=== PATIENT | female | born 1970 | race African-American/Black ===

== ENCOUNTER 2017-06-15 09:53 | Emergency (ER) | payer SELFPAY ==
[~2017-06-15] VITALS: Ht 170.2 cm; Wt 61.2 kg
[2017-06-15 10:25] VITALS: BP 115/71
--- NOTE | 2017-06-15 10:35 | Emergency Room Report ---
History of Present Illness General Chief Complaint: Upper Respiratory Illness Source: Patient Present Illness HPI Patient present with complaints of shortness of breath Patient was just COPD and over the past several days has had a nonproductive cough She has some mild chest tightness with this but associated to the breathing Denies any vomiting or diarrhea denies any fevers or chills Patient has low back discomfort as well Does not recall how she hurt the back She reports moderate distress to her breathing Denies any recent travel or pleurisy Allergies: Coded Allergies: No Known Allergies (Unverified , 06/15/17) Patient History Past Medical History: see triage record Pertinent Family History: none Last Menstrual Period: 2008 Reviewed Nursing Documentation: PMH: Agreed, PSxH: Agreed Nursing Documentation-PMH Past Medical History: No History, Except For Hx Cardiac Problems: No - 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,cervical cancer Hx COPD: Yes Review of Systems All Other Systems: negative except mentioned in HPI Physical Exam Vital Signs Date Time Temp Pulse Resp B/P (MAP) Pulse Ox O2 Delivery O2 Flow Rate FiO2 06/15/17 10:00 97.9 84 18 115/75 93 Room Air Sp02 EP Interpretation: reviewed, normal General Appearance: moderate distress - appears short of breath Head: normocephalic, atraumatic Eyes: bilateral eye PERRL, bilateral eye EOMI ENT: hearing grossly normal, normal pharynx, TMs + canals normal, uvula midline Neck: full range of motion, supple, no meningismus, no bony tend Respiratory: crackles - Diffusely, patient is tachypneic and showing mild early signs of retractions Cardiovascular #1: normal peripheral pulses, regular rate, rhythm, no edema, no gallop, no JVD, no murmur Gastrointestinal: normal bowel sounds, non tender, soft, no mass, no organomegaly, non-distended, no guarding, no hernia, no pulsatile mass, no rebound Genitourinary: no CVA tenderness Musculoskeletal: normal inspection Neurologic: oriented x3, responsive, cut tobacco bulker III-XII nml as tested, motor strength/ tone normal, sensory intact Psychiatric: mood/affect normal Skin: normal color, no rash, warm/dry, palpation normal Lymphatic: normal inspection, no adenopathy Medical Decision Making Diagnostic Impression: Primary Impression: Upper respiratory infection Additional Impression: COPD exacerbation ER Course Multiple differentials considered including but not limited to cardiac, cardiopulmonary, infectious pathology Patient received multiple breathing treatments sounds significantly improved on reevaluation Chest x-ray did not show any acute disease patient's blood work also at baseline levels patient reports that she has been fairly noncompliant with her medications she was provided with steroids and after further observation has improved for initial conservative outpatient followup Labs Test 06/15/17 10:50 White Blood Count 8.0 K/UL (4.8-10.8) Red Blood Count 5.23 M/UL (4.20-5.40) Hemoglobin 16.7 G/DL (12.0-16.0) Hematocrit 49.4 % (37.0-47.0) Mean Corpuscular Volume 94 FL (80-99) Mean Corpuscular Hemoglobin 31.9 PG (27.0-31.0) Mean Corpuscular Hemoglobin Concent 33.9 G/DL (32.0-36.0) Red Cell Distribution Width 12.6 % (11.6-14.8) Platelet Count 234 K/UL (150-450) Mean Platelet Volume 6.4 FL (6.5-10.1) Neutrophils (%) (Auto) 41.0 % (45.0-75.0) Lymphocytes (%) (Auto) 52.3 % (20.0-45.0) Monocytes (%) (Auto) 4.9 % (1.0-10.0) Eosinophils (%) (Auto) 0.7 % (0.0-3.0) Basophils (%) (Auto) 1.0 % (0.0-2.0) Sodium Level 138 mEQ/L (135-145) Potassium Level 5.0 mEQ/L (3.4-4.9) Chloride Level 102 mEQ/L (98-107) Carbon Dioxide Level 23 mEQ/L (20-30) Anion Gap 13 (5-15) Blood Urea Nitrogen 9 mg/dL (7-23) Creatinine 0.8 mg/dL (0.5-0.9) Estimat Glomerular Filtration Rate > 60 mL/min (>60) Glucose Level 103 mg/dL (74-106) Calcium Level 9.5 mg/dL (8.6-10.2) Total Bilirubin 0.2 mg/dL (0.0-1.2) Aspartate Amino Transf (AST/SGOT) 19 U/L (5-40) Alanine Aminotransferase (ALT/SGPT) 12 U/L (3-33) Alkaline Phosphatase 81 U/L (35-104) Total Creatine Kinase 101 U/L (26-140) Creatine Kinase MB 2.2 ng/mL (< 3.8) Creatine Kinase MB Relative Index 2.1 Troponin I < 0.30 ng/mL (<=0.30) Pro-B-Type Natriuretic Peptide 35 pg/mL (0-125) Total Protein 7.4 g/dL (6.6-8.7) Albumin 4.3 g/dL (3.5-5.2) Globulin 3.1 g/dL Albumin/Globulin Ratio 1.3 (1.0-2.7) Lipase 39 U/L (< 60) Rhythm Strip Diag. Results EP Interpretation: yes Rate: 87 Rhythm: NSR, no PVC's, no ectopy Chest X-Ray Diagnostic Results Chest X-Ray Diagnostic Results : Chest X-Ray Ordered: Yes # of Views/Limited/Complete: 1 View Indication: Chest Pain EP Interpretation: Yes Interpretation: no consolidation, no effusion, no pneumothorax Impression: No acute disease Last Vital Signs Date Time Temp Pulse Resp B/P (MAP) Pulse Ox O2 Delivery O2 Flow Rate FiO2 06/15/17 10:30 73 18 Room Air 06/15/17 10:25 98.4 115/71 92 Status: improved Disposition: HOME, SELF-CARE Condition: Improved Scripts Ibuprofen* (MOTRIN*) 600 Mg Tablet 600 MG ORAL Q8H Y for For Pain, #20 TAB 0 Refills Prov: JU GARDNER D.O. 06/15/17 Prednisone* (PREDNISONE*) 20 Mg Tablet 20 MG ORAL BID, #8 TAB Prov: JU GARDNEROPooja 06/15/17 Albuterol Sulfate* (ALBUTEROL SULFATE MDI*) 8.5 Gm Hfa.aer.ad 2 PUFF INH Q6H, #1 EA 0 Refills Prov: JU GARDNER D.O. 06/15/17 Additional Instructions: Patient is provided with the discharge instructions notified to follow up with primary doctor in the next 2-3 days otherwise return to the er with any worsening symptoms. Please note that this report is being documented using [employer] technology. This can lead to erroneous entry secondary to incorrect interpretation by the dictating instrument. JU GARDNER D.O. Jun 15, 2017 10:35
[2017-06-15] MEDS ORDERED: Albuterol ud Inhalation HHN ONE (10:45)
[2017-06-15] MEDS ORDERED: Solu-MEDROL 125mg Inj IVP ONE (10:45)
[2017-06-15] MEDS ORDERED: Norco 10mg/325mg tab ORAL ONE (10:45)
[2017-06-15] MEDS ORDERED: Ipratropium 0.02% Inh Soln 2.5ml UD HHN ONE (10:45)
[2017-06-15 11:05] LABS: EOSINOPHILS % (AUTO) 0.7 % (0.0-3.0); LYMPHOCYTES % (AUTO) 52.3 % (20.0-45.0); MEAN CORPUSCULAR HEMOGLOBIN 31.9 PG (27.0-31.0); MEAN CORPUSCULAR HGB CONC 33.9 G/DL (32.0-36.0); MEAN CORPUSCULAR VOLUME 94 FL (80-99); MEAN PLATELET VOLUME 6.4 FL (6.5-10.1); MONOCYTES % (AUTO) 4.9 % (1.0-10.0); PLATELET COUNT 234 K/UL (150-450); RED BLOOD COUNT 5.23 M/UL (4.20-5.40); RED CELL DISTRIBUTION WIDTH 12.6 % (11.6-14.8)
[2017-06-15 11:17] LABS: ALANINE AMINOTRANSFERASE 12 U/L (3-33); ALBUMIN/GLOBULIN RATIO 1.3 (1.0-2.7); ANION GAP 13 (5-15); ASPARTATE AMINO TRANSFERASE 19 U/L (5-40); CALCIUM 9.5 mg/dL (8.6-10.2); CARBON DIOXIDE 23 mEQ/L (20-30); CHLORIDE 102 mEQ/L (98-107); CREATININE 0.8 mg/dL (0.5-0.9); GLOMERULAR FILTRATION RATE > 60 mL/min (>60); HEMOLYSIS 127; LIPASE 39 U/L (< 60); SODIUM 138 mEQ/L (135-145); TOTAL PROTEIN 7.4 g/dL (6.6-8.7); TROPONIN I < 0.30 ng/mL (<=0.30)
[2017-06-15 11:19] VITALS: BP 121/73
[2017-06-15 11:27] LABS: CKMB 2.2 ng/mL (< 3.8)
--- NOTE | 2017-06-15 11:36 | Diagnostic Imaging Report ---
Indication: SOB Technique: XRAY CHEST 1 V Comparison: None. Findings: The cardiomediastinal silhouette is normal. The lungs are clear. There is no evidence of pleural fluid. The bones are unremarkable. Impression: Normal chest.
[2017-06-15 12:44] VITALS: BP 107/52
[2017-06-15] MEDS ORDERED: PREDNISONE20 MG ORAL (12:48)
[2017-06-15] MEDS ORDERED: ALBUTEROL SULF8.5 GM INH (12:48)
[2017-06-15] MEDS ORDERED: IBUPROFEN600 MG ORAL (12:48)
[2017-06-15 13:26] VITALS: BP 115/52
--- NOTE | 2017-06-16 18:36 | Cardiology Report ---
APPROVED REPORT EKG Measurement Heart [id number] VT [id number] Sinus rhythm with 1st degree AV block Possible Left atrial enlargement Incomplete right bundle branch block Possible Anteroseptal infarct, age undetermined Abnormal ECG
== END 2017-06-15 13:29 | disposition home or self-care (01) ==
LOC: EMR 10:20
DX: J06.9 Acute upper respiratory infection, unspecified (principal); J44.1 Chronic obstructive pulmonary disease with (acute) exacerbation; Z85.41 Personal history of malignant neoplasm of cervix uteri; H91.91 Unspecified hearing loss, right ear
CPT/HCPCS: 36415; 71010; 80053; 82550; 82553; 83690; 83880; 84484; 85025; 93005; 94640; 96361; 96374; 99284; J2930; J7040